=== PATIENT | male | born 1980 | race Hispanic/Latino ===

== ENCOUNTER 2017-03-12 20:50 | Emergency (ER) | payer MEDICARE ==
[2017-03-12 20:50] VITALS: BMI 24.4
[2017-03-12 20:57] VITALS: BP 130/90; PULSE 96; RESP 13; TEMP 99; O2SAT 99
--- NOTE | 2017-03-12 21:15 | ED PDOC ---
HPI: Psych/Substance Abuse Time Seen by Provider: 03/12/17 20:56 Chief Complaint (Nursing): Substance Abuse Chief Complaint (Provider): Denies complaint, reports heroine abuse History Per: Patient History/Exam Limitations: no limitations Current Symptoms Are (Timing): Still Present Associated Symptoms: denies: Anger, Anxiety, Agitation, Depression, Paranoia, Suicidal Thoughts, Suicidal Plan Past Medical History Reviewed: Historical Data, Nursing Documentation, Vital Signs Vital Signs: Last Vital Signs Temp 99 F 03/12/17 20:54 Pulse 96 H 03/12/17 20:54 Resp 13 03/12/17 20:54 BP 130/90 03/12/17 20:54 Pulse Ox 99 03/12/17 20:54 - Medical History PMH: No Chronic Diseases - Surgical History Surgical History: No Surg Hx - Family History Family History: States: Unknown Family Hx - Living Arrangements Living Arrangements: With Family - Social History Current smoker - smoking cessation education provided: No Alcohol: Occasional Drugs: Cannabis, Opiates - Immunization History Hx Tetanus Toxoid Vaccination: Yes (3 mos. ago) Hx Influenza Vaccination: Yes Hx Pneumococcal Vaccination: No - Home Medications Home Medications: Ambulatory Orders Medication Instructions Recorded Albuterol HFA [Ventolin HFA 90 2 puff IH [id number] #1 inh 06/13/16 mcg/actuation (8 g)] Azithromycin [Zithromax] 500 mg PO DAILY #5 tablet 06/13/16 Promethazine/Dextromethorphan 473 ml PO Q6H PRN #0 syrup 06/13/16 [Promethazine-Dm Solution] - Allergies Allergies/Adverse Reactions: Allergies Allergy/AdvReac Type Severity Reaction Status Date / Time No Known Allergies Allergy Verified 03/12/17 20:57 Review of Systems ROS Statement: Except As Marked, All Systems Reviewed And Found Negative Constitutional: Negative for: Fever, Chills Cardiovascular: Negative for: Chest Pain Gastrointestinal: Negative for: Nausea, Vomiting Physical Exam - Reviewed Nursing Documentation Reviewed: Yes Vital Signs Reviewed: Yes - Physical Exam Appears: Positive for: Well, Non-toxic, No Acute Distress Head Exam: Positive for: ATRAUMATIC, NORMAL INSPECTION, NORMOCEPHALIC Skin: Positive for: Normal Color, Warm, DRY Eye Exam: Positive for: Normal appearance, PERRL ENT: Positive for: Normal ENT Inspection Neck: Positive for: Normal, Painless ROM Cardiovascular/Chest: Positive for: Regular Rate, Rhythm Respiratory: Positive for: CNT, Normal Breath Sounds Back: Positive for: Normal Inspection Extremity: Positive for: Normal ROM Neurologic/Psych: Positive for: Alert, Oriented, Gait - ECG O2 Sat by Pulse Oximetry: 99 Disposition - Clinical Impression Clinical Impression: Substance abuse - Disposition Disposition: Routine/Home Disposition Time: 21:14 Condition: GOOD Instructions: Narcotic Abuse (ED)
== END 2017-03-12 21:25 | disposition home or self-care (01) ==
LOC: H.ER 20:50
DX: F19.10 Other psychoactive substance abuse, uncomplicated (principal)

== ENCOUNTER 2017-03-19 04:19 | Emergency (ER) | payer MEDICARE ==
[2017-03-19 04:30] VITALS: BMI 24.5
[2017-03-19 04:34] VITALS: BP 131/88; PULSE 97; RESP 16; TEMP 98.1; O2SAT 99
--- NOTE | 2017-03-19 05:08 | ED PDOC ---
HPI: Psych/Substance Abuse Time Seen by Provider: 03/19/17 04:26 Chief Complaint (Nursing): Substance Abuse Chief Complaint (Provider): Substance Abuse History Per: Patient History/Exam Limitations: no limitations Onset/Duration Of Symptoms: Mins (prior to arrival) Current Symptoms Are (Timing): Still Present Additional Complaint(s): Salvador Ramirez is a 37 year old male with previous medical history of heroin and PCP abuse, who presents to the emergency department via EMS for an psychiatric evaluation after he was found publicly intoxicated. Patient was discharged 4 days ago from [facility] for heroin use but denied any substance use or further medical complaints upon ED arrival today. PMD: none provided Past Medical History Reviewed: Historical Data, Nursing Documentation, Vital Signs Vital Signs: Last Vital Signs Temp 98.1 F 03/19/17 04:30 Pulse 97 H 03/19/17 04:30 Resp 16 03/19/17 04:30 BP 131/88 03/19/17 04:30 Pulse Ox 99 03/19/17 04:30 - Medical History PMH: No Chronic Diseases - Surgical History Surgical History: No Surg Hx - Family History Family History: States: Unknown Family Hx - Immunization History Hx Tetanus Toxoid Vaccination: Yes (3 mos. ago) Hx Influenza Vaccination: Yes Hx Pneumococcal Vaccination: No - Home Medications Home Medications: Ambulatory Orders Medication Instructions Recorded Albuterol HFA [Ventolin HFA 90 2 puff IH [id number] #1 inh 06/13/16 mcg/actuation (8 g)] Azithromycin [Zithromax] 500 mg PO DAILY #5 tablet 06/13/16 Promethazine/Dextromethorphan 473 ml PO Q6H PRN #0 syrup 06/13/16 [Promethazine-Dm Solution] - Allergies Allergies/Adverse Reactions: Allergies Allergy/AdvReac Type Severity Reaction Status Date / Time No Known Allergies Allergy Verified 03/19/17 04:29 Review of Systems ROS Statement: Except As Marked, All Systems Reviewed And Found Negative Constitutional: Positive for: Other (intoxication) Physical Exam - Reviewed Nursing Documentation Reviewed: Yes Vital Signs Reviewed: Yes - Physical Exam Appears: Positive for: Well (asymptomatic), Non-toxic, No Acute Distress Head Exam: Positive for: ATRAUMATIC, NORMAL INSPECTION, NORMOCEPHALIC Skin: Positive for: Normal Color Cardiovascular/Chest: Positive for: Regular Rate, Rhythm Respiratory: Positive for: CNT, Normal Breath Sounds Neurologic/Psych: Positive for: Alert - ECG O2 Sat by Pulse Oximetry: 99 (RA) Pulse Ox Interpretation: Normal Medical Decision Making Medical Decision Making: Initial Impression: Substance abuse evaluation Initial Plan: * EKG * Alcohol serum * Labs * Drug screen, urine * Urine dipstick * Accucheck Time: 0500 Upon provider reevaluation, patient is alert/awake, walking with steady gait and requires no further treatment in the ED at this time. Stated he would like to leave. Patient will be discharged home. Counseling was provided and all questions were answered regarding diagnosis and need for follow up with PCP. There is agreement to discharge plan. Return if symptoms persist or worsen. Clinical Impression: Polysubstance abuse Scribe Attestation: Documented by Glendy Pritchett, acting as a scribe for Julien Warren MD. Provider Scribe Attestation: All medical record entries made by the Scribe were at my direction and personally dictated by me. I have reviewed the chart and agree that the record accurately reflects my personal performance of the history, physical exam, medical decision making, and the department course for this patient. I have also personally directed, reviewed, and agree with the discharge instructions and disposition. Disposition - Clinical Impression Clinical Impression: Substance abuse - Patient ED Disposition Is Patient to be Admitted: No Doctor Will See Patient In The: Office Counseled Patient/Family Regarding: Diagnosis - Disposition Disposition: Routine/Home Disposition Time: 05:00 Condition: STABLE Instructions: Polysubstance Abuse (ED) Forms: [employer] (Syriac)
== END 2017-03-19 05:15 | disposition home or self-care (01) ==
LOC: H.ER 04:19
DX: F19.10 Other psychoactive substance abuse, uncomplicated (principal)

== ENCOUNTER 2017-03-26 22:48 | Emergency (ER) | payer MEDICARE ==
[2017-03-26 22:48] VITALS: BMI 24.5
[2017-03-26 22:51] VITALS: BP 140/87; PULSE 109; RESP 16; TEMP 98.3; O2SAT 98
--- NOTE | 2017-03-26 23:01 | ED PDOC ---
HPI: Psych/Substance Abuse Time Seen by Provider: 03/26/17 22:52 Chief Complaint (Nursing): Substance Abuse History Per: Patient, EMS Additional Complaint(s): As per EMS pt. was found lying on the ground publically intoxicated. Pt. admitted to them that he used PCP. Pt. offers no complaints at this time. Pt. is well known to ED. Past Medical History Reviewed: Historical Data, Nursing Documentation, Vital Signs Vital Signs: Last Vital Signs Temp 98.3 F 03/26/17 22:49 Pulse 109 H 03/26/17 22:49 Resp 16 03/26/17 22:49 BP 140/87 03/26/17 22:49 Pulse Ox 98 03/26/17 22:49 - Family History Family History: States: Unknown Family Hx - Immunization History Hx Tetanus Toxoid Vaccination: Yes (3 mos. ago) Hx Influenza Vaccination: Yes Hx Pneumococcal Vaccination: No - Home Medications Home Medications: Ambulatory Orders Medication Instructions Recorded Albuterol HFA [Ventolin HFA 90 2 puff IH [id number] #1 inh 06/13/16 mcg/actuation (8 g)] Azithromycin [Zithromax] 500 mg PO DAILY #5 tablet 06/13/16 Promethazine/Dextromethorphan 473 ml PO Q6H PRN #0 syrup 06/13/16 [Promethazine-Dm Solution] - Allergies Allergies/Adverse Reactions: Allergies Allergy/AdvReac Type Severity Reaction Status Date / Time No Known Allergies Allergy Verified 03/19/17 04:29 Review of Systems ROS Statement: Except As Marked, All Systems Reviewed And Found Negative Physical Exam - Reviewed Nursing Documentation Reviewed: Yes Vital Signs Reviewed: Yes - Physical Exam Appears: Positive for: Well, Non-toxic, No Acute Distress Head Exam: Positive for: ATRAUMATIC, NORMAL INSPECTION, NORMOCEPHALIC Skin: Positive for: Normal Color, Warm. Negative for: Rash Eye Exam: Positive for: EOMI, Normal appearance, PERRL ENT: Positive for: Normal ENT Inspection Neck: Positive for: Normal, Painless ROM Cardiovascular/Chest: Positive for: Regular Rate, Rhythm Respiratory: Positive for: CNT, Normal Breath Sounds Gastrointestinal/Abdominal: Positive for: Normal Exam, Soft. Negative for: Tenderness Back: Positive for: Normal Inspection Extremity: Positive for: Normal ROM Neurologic/Psych: Positive for: Alert, Oriented, Gait (steady, unassisted), Other (answering questions appropriately; pt. playing on cell phone). Negative for: Aphasia, Facial Droop - ECG O2 Sat by Pulse Oximetry: 98 Disposition - Clinical Impression Clinical Impression: Substance abuse - Patient ED Disposition Is Patient to be Admitted: No - Disposition Referrals: [facility] [Outside] Disposition: Routine/Home Disposition Time: 23:02 Condition: STABLE Instructions: Polysubstance Abuse (ED) Forms: [employer] (Tristanian)
== END 2017-03-26 23:02 | disposition home or self-care (01) ==
LOC: H.ER 22:48
DX: F16.10 Hallucinogen abuse, uncomplicated (principal)

== ENCOUNTER 2017-06-22 23:57 | Emergency (ER) | payer MEDICARE ==
[2017-06-22 23:58] VITALS: BMI 24.5
[2017-06-23 00:02] VITALS: RESP 16
--- NOTE | 2017-06-23 00:39 | ED PDOC ---
HPI: Psych/Substance Abuse Time Seen by Provider: 06/23/17 00:03 Chief Complaint (Nursing): Altered Mental Status Chief Complaint (Provider): Overdose History Per: Patient Additional Complaint(s): Salvador is a 37 y/o male brought to the ED by EMS for possible drug ingestion. Patient admits he did drugs and drank alcohol, but did not specify which drugs. Patient is currently alert and oriented x 2, and thinks its 2016. He denies suicidal or homicidal ideation. PMD: None Provided Past Medical History Reviewed: Historical Data, Nursing Documentation, Vital Signs Vital Signs: Last Vital Signs Temp 98.0 F 06/22/17 23:59 Pulse 120 H 06/22/17 23:59 Resp 16 06/22/17 23:59 BP 187/110 H 06/22/17 23:59 Pulse Ox 98 06/22/17 23:59 - Family History Family History: States: Unknown Family Hx - Social History Alcohol: > 2 Drinks/Day Drugs: Other (unkown) - Immunization History Hx Tetanus Toxoid Vaccination: Yes (3 mos. ago) Hx Influenza Vaccination: Yes Hx Pneumococcal Vaccination: No - Home Medications Home Medications: Ambulatory Orders Medication Instructions Recorded Albuterol HFA [Ventolin HFA 90 2 puff IH [id number] #1 inh 06/13/16 mcg/actuation (8 g)] Azithromycin [Zithromax] 500 mg PO DAILY #5 tablet 06/13/16 Promethazine/Dextromethorphan 473 ml PO Q6H PRN #0 syrup 06/13/16 [Promethazine-Dm Solution] - Allergies Allergies/Adverse Reactions: Allergies Allergy/AdvReac Type Severity Reaction Status Date / Time No Known Allergies Allergy Verified 03/19/17 04:29 Review of Systems ROS Statement: Except As Marked, All Systems Reviewed And Found Negative Physical Exam - Reviewed Nursing Documentation Reviewed: Yes Vital Signs Reviewed: Yes - Physical Exam Appears: Positive for: Non-toxic, No Acute Distress. Negative for: Well (under the influence) Head Exam: Positive for: ATRAUMATIC, NORMAL INSPECTION, NORMOCEPHALIC Skin: Positive for: Normal Color, Warm, Dry. Negative for: Diaphoresis Eye Exam: Positive for: Normal appearance, EOMI, PERRL (2-3 mm). Negative for: Nystagmus Neck: Positive for: Normal, Painless ROM, Supple Respiratory: Positive for: Normal Breath Sounds. Negative for: Respiratory Distress Neurologic/Psych: Positive for: Alert, Oriented (x 2) - Laboratory Results Result Diagrams: 06/23/17 00:42 06/23/17 00:42 - ECG O2 Sat by Pulse Oximetry: 98 (RA) Pulse Ox Interpretation: Normal Medical Decision Making Medical Decision Making: Time: 00:11 Initial Impression: Drug and alcohol abuse Initial Plan: --Acetaminophen --Alcohol serum --BMP --Urine Drug Screen --Salicylate --CBC --Urinalysis 3AM Pt. now A&O x 3 w/ steady gait. Communicative and able to provide further hx. Admits to smoking PCP. Will d/c home. Scribe Attestation: Documented by Ascencion Cooper, acting as a scribe for Lico Dick MD Provider Scribe Attestation: All medical record entries made by the Scribe were at my direction and personally dictated by me. I have reviewed the chart and agree that the record accurately reflects my personal performance of the history, physical exam, medical decision making, and the department course for this patient. I have also personally directed, reviewed, and agree with the discharge instructions and disposition. Disposition - Clinical Impression Clinical Impression: PCP (phencyclidine) abuse, Hypokalemia - Disposition Referrals: [facility] [Outside] Disposition: Routine/Home Disposition Time: 03:00 Condition: STABLE Instructions: Hypokalemia (DC), Polysubstance Abuse (ED) Forms: [employer] (Polish)
[2017-06-23 00:44] LABS: BASO % 0.4 % (0.0-2.0); EOS # 0.1 K/uL (0.0-0.7); EOS % 1.1 % (0.0-4.0); HEMATOCRIT 36.2 % (35.0-51.0); LYMPH # 1.5 K/uL (1.0-4.3); LYMPH % 22.6 % (20.0-40.0); MEAN CORPUSCULAR HEMOGLOBIN 30.7 pg (27.0-31.0); MEAN CORPUSCULAR HGB CONC 33.4 g/dL (33.0-37.0); MEAN PLATELET VOLUME 9.8 fl (7.2-11.7); MONO # 0.4 K/uL (0.0-0.8); MONO % 5.8 % (0.0-10.0); NEUT # 4.7 K/uL (1.8-7.0); NEUT % 70.1 % (50.0-75.0); NRBC % 0.1 % (0.0-0.0); RED CELL DISTRIBUTION WIDTH 13.6 % (11.5-14.5); WHITE BLOOD COUNT 6.7 K/uL (4.8-10.8)
[2017-06-23 00:50] LABS: ALCOHOL SERUM < 10 mg/dl (0-10); BLOOD UREA NITROGEN 17 mg/dl (9-20); CALCIUM 8.8 mg/dL (8.4-10.2); CARBON DIOXIDE 24 mmol/L (22-30); CHLORIDE 105 mmol/L (98-107); GFR AFRICAN-AMERICAN > 60; GLUCOSE,RANDOM 128 mg/dL (75-110); POTASSIUM 3.1 MMOL/L (3.6-5.0); SODIUM 141 mmol/l (132-148)
[2017-06-23 01:21] LABS: RBC URINE 3 /hpf (0-3); URINE BACTERIA RARE (<OCC); URINE BILIRUBIN NEGATIVE (NEGATIVE); URINE BLOOD NEGATIVE (NEGATIVE); URINE COLOR YELLOW (YELLOW); URINE GLUCOSE (UA) NEG (Normal); URINE KETONE 20 mg/dL (NEGATIVE); URINE LEUKOCYTE ESTERASE NEG Leu/uL (Negative); URINE PROTEIN 30 mg/dL (NEGATIVE); URINE UROBILINOGEN 0.2-1.0 mg/dL (0.2-1.0); WBC URINE 1 /hpf (0-5)
[2017-06-23] MEDS ORDERED: Potassium Chloride 20 mEq ER Tab PO ONE (01:27)
[2017-06-23 02:51] VITALS: BP 129/81; PULSE 81; TEMP 98.3
[2017-06-23 03:32] VITALS: O2SAT 98
== END 2017-06-23 03:15 | disposition home or self-care (01) ==
LOC: H.ER 23:57
DX: F16.10 Hallucinogen abuse, uncomplicated (principal); E87.6 Hypokalemia; F10.10 Alcohol abuse, uncomplicated